=== PATIENT | female | born 1930 | race Caucasian/White ===

== ENCOUNTER 2016-03-31 09:50 | Observation (INO) | payer MEDICARE, OTHER ==
[2016-03-31] MEDS ORDERED: ONDANSETRON HCL 4 MG/2 ML VIAL ONE (10:25)
[2016-03-31 10:58] LABS: BASOPHIL# 0.1 X 10^3uL (0.0-0.1); BASOPHILS 1.5 % (0.0-2.0); EOSINOPHILS# 0.1 X 10^3uL (0.0-0.4); HEMATOCRIT 42.8 % (36.0-48.0); HEMOGLOBIN 14.3 g/dL (12.0-16.0); LYMPHOCYTES 25.3 % (20.0-40.0); LYMPHOCYTES# 2.1 X 10^3uL (0.8-3.8); MEAN CELL VOLUME 83.4 fL (84.0-102.0); MEAN CORPUS. HGB CONCENTRATION 33.4 g/dL (32.0-36.0); MEAN CORPUSCULAR HEMOGLOBIN 27.9 pg (29.0-35.0); MEAN PLATELET VOLUME 8.1 fL (7.4-10.4); MONOCYTES 9.3 % (2.0-10.0); MONOCYTES# 0.8 X 10^3uL (0.2-1.0); NEUTROPHILS 62.9 % (54.0-75.0); NEUTROPHILS# 5.3 X 10^3uL (2.6-6.7); PLATELET COUNT 448 X 10^3uL (130-440); RED BLOOD COUNT 5.13 X 10^6uL (4.20-6.10); RED CELL DISTRIBUTION WIDTH 13.1 % (11.5-14.5); WHITE BLOOD COUNT 8.4 X 10^3uL (3.9-10.7)
[2016-03-31 11:09] LABS: ALBUMIN 4.4 g/dL (3.5-5.0); ALKALINE PHOSPHATASE 149 U/L (38-126); ALT 23 U/L (9-52); AST 25 U/L (14-36); BILIRUBIN, DIRECT 0.4 mg/dL (0.0-0.4); BILIRUBIN, TOTAL 0.9 mg/dL (0.2-1.3); BLOOD UREA NITROGEN 34 mg/dL (7-17); CALCIUM 9.8 mg/dL (8.4-10.2); CHLORIDE 106 mmol/L (98-107); CREATININE 1.4 mg/dL (0.5-1.0); GLUCOSE 100 mg/dL (70-100); POTASSIUM 4.4 mmol/L (3.5-5.1); SODIUM 143 mmol/L (137-145); TOTAL PROTEIN 8.4 g/dL (6.3-8.2)
[2016-03-31 11:20] LABS: TROPONIN I < 0.012 ng/mL (0.00-0.034)
--- NOTE | 2016-03-31 11:40 | CT REPORT ---
HISTORY: Altered mental status COMPARISON: None. TECHNIQUE: Axial non-contrast images obtained from skull vertex through foramen magnum. FINDINGS: Intracranial hemorrhage, parenchymal mass or mass effect There is no evidence of acute ischemia or infarction. The ventricles and sulci are proportionately enlarged consistent with diffuse cerebral volume loss. White matter changes in a pattern consistent with chronic small vessel ischemia are noted. Incidentally noted 12 mm calcified nodule along the anterior falx right of midline consistent with a meningioma. The visualized portions of the orbits and paranasal sinuses are normal in appearance. IMPRESSION: No evidence of acute intracranial pathology. Moderate diffuse cerebral volume loss and white matter changes consistent with chronic small vessel ischemia. Incidentally noted 12 mm meningioma along anterior falx Findings were committed by telephone with Dr. Laurent in the emergency department at 11:00 AM 01/28/2017 Final Electronic Signature: This report was electronically signed by Rich Spencer MD on 03/31/2016 11:03 AM. dwells / MTDD
[2016-03-31] MEDS ORDERED: ACETAMINOPHEN 325 MG TABLET PO PRN ×2 (12:15→19:14)
[2016-03-31] MEDS ORDERED: HOME MEDICATION LIST NEEDED 1 EA EACH MC ONE (12:15)
[2016-03-31] MEDS ORDERED: NORMAL SALINE 1,000 ML IV SCH (13:00)
--- NOTE | 2016-03-31 13:10 | ER PHYSICIAN DOCUMENTATION ---
Physician Documentation [facility] Name:Lorene Ty Age:85 yrs Sex:Female :1930 Arrival Date:03/31/2016 Time:09:50 BedTrauma A Private MD: Murtaza Dee Disposition: 03/31/16 12:15 Admit ordered for Betty Perez. Preliminary diagnosis is Altered Mental Status. - Bed requested for Medical/Surgical. - Condition is Fair. - Problem is new. - Symptoms have improved. 23 HR OBS Yes HPI: 03/31 10:09 This 85 yrs old Female presents to ER with complaints of Altered Mental jm Status. 10:09 The patient presents with decreased mental status, decreased responsiveness. Onset: The jm symptom(s)/episode began/occurred just prior to arrival. Possible causes: unknown. Associated signs and symptoms: Pertinent positives: nausea, Pertinent negatives: abdominal pain, chest pain, lightheadedness. Current symptoms: In the emergency department the patient's symptoms have improved, markedly. Unable to obtain HPI due to AMS. The patient has not experienced similar symptoms in the past. The patient has not recently seen a physician. 10:23 Patient's baseline: The patient has a previous history of dementia. Unable to obtain jm HPI due to altered mental status, baseline dementia. EMS was called 2/2 unresponsiveness this AM. She woke up got out of bed and went back into bed and then couldn't be aroused and wasn't answering questions, so 911 was called. EMS said they agreed she wasn't responsive at first, but started res more as they moved her to the [facility]. By the time she got here, she was answering questions and talking. . Historical: - Allergies: No known drug Allergies; - Home Meds: 1. Lisinopril Oral 2. amlodipine oral 3. Aspirin Oral - PMHx: Hypertension; hyperlipidemia; GOUT; ANXIETY; DEMENTIA; - Immunization history: Pneumococcal vaccine is not up to date, Flu Vaccine < 1 year. - Tetanus: > 10 years. - Ebola Screening: : Patient negative for fever greater than or equal to 101.5 degrees Fahrenheit, and additional compatible Ebola Virus Disease symptoms. Patient denies exposure to infectious person. Patient denies travel to an Ebola-affected area in the 21 days before illness onset. No symptoms or risks identified at this time. . - Social history: Smoking status: Patient states was never smoker of tobacco. Patient/guardian denies using alcohol. ROS: 10:42 Constitutional: Negative for fatigue, fever. jm 10:42 Eyes: Negative for blurry vision, vision loss. 10:42 ENT: Negative for rhinorrhea, sinus congestion, sinus pain, sore throat. 10:42 Cardiovascular: Negative for chest pain. 10:42 Respiratory: Negative for cough, shortness of breath. 10:42 Abdomen/GI: Positive for nausea, Negative for abdominal pain, vomiting, diarrhea. 10:42 Back: Negative for injury or acute deformity. 10:42 MS/extremity: Negative for pain, rash, swelling, tenderness. 10:42 Skin: Negative for rash, swelling. 10:42 Neuro: Positive for altered mental status, Negative for numbness, syncope, near syncope, tingling. 10:42 Psych: Positive for depression, Negative for homicidal ideation. 10:42 All other systems are negative. Exam: 10:44 Constitutional: The patient appears alert, awake, happy and crying at the same time. jm 10:44 Head/face: Exam is negative for obvious evidence of injury or deformity, Sinus tenderness, is not appreciated. 10:44 Eyes: Periorbital structures: appear normal, Pupils: equal, round, and reactive to light and accomodation, Extraocular movements: intact throughout. 10:44 ENT: Mouth: Oral mucosa: dry, Posterior pharynx: is normal, Voice: is normal. 10:44 Neck: C-spine: appears grossly normal, Thyroid: appears normal, Trachea: is midline with no obvious abnormalities. 10:44 Cardiovascular: Rate: normal, Rhythm: regular. 10:44 Respiratory: the patient does not display signs of respiratory distress, Respirations: normal. 10:44 Abdomen/GI: Bowel sounds: normal, Palpation: abdomen is soft and non-tender. 10:44 Back: CVA tenderness, is absent, vertebral tenderness, is not appreciated. 10:44 Musculoskeletal/extremity: Circulation is intact in all extremities. DVT Exam: No signs of deep vein thrombosis. 10:44 Skin: Appearance: Color: pink, no rash present. 10:44 Neuro: Orientation: is normal, Mentation: is normal, Memory: Did not know her year, president, city she lives in, or situation. , Cranial nerves: CN II- XII are normal as tested, Cerebellar function: is grossly normal, normal finger to nose testing, Motor: strength is 5/5 in all extremities, Sensation: is normal. 10:44 Psych: Behavior/mood is pleasant, cooperative, anxious, Affect is calm. Vital Signs: 10:15 BP 137 / 73; Pulse 87; Resp 24; Temp 98.0; Pulse Ox 97% on R/A; Pain 0/10; sj 10:40 BP 149 / 64; Pulse 62; Pulse Ox 98% on R/A; sj 11:09 BP 140 / 66; Pulse 62; Pulse Ox 99% on R/A; sj 11:30 Pulse Ox 74% on R/A; sj 11:36 BP 165 / 63; Pulse 60; Resp 16; Pulse Ox 98% on 2 lpm NC; sj 12:00 BP 148 / 69; Pulse 65; Resp 23; Pulse Ox 98% on 2 lpm NC; sj 12:30 BP 153 / 68; Pulse 67; Resp 13; Pulse Ox 92% on R/A; sj NIH Stroke Scale Scores: 11:11 NIHSS Score: 3 [place] Coma Score: 10:17 Eye Response: spontaneous(4). Verbal Response: confused(4). Motor Response: obeys commands(6). Total: 14. MDM: 09:58 Patient medically screened. 12:02 Differential Diagnosis: electrolyte abnormality, hypoglycemia, intracranial bleed, jm seizure, TIA, volume depletion, hypoxic encephalopathy . Data reviewed: vital signs, nurses notes, EMS record, old medical records, lab test result(s), EKG, radiologic studies, and as a result, I will discharge patient. Test interpretation: by ED physician or midlevel provider: plain radiologic studies, ECG. Counseling: I had a detailed discussion with the patient and/or guardian regarding: the historical points, exam findings, and any diagnostic results supporting the discharge/admit diagnosis, lab results, radiology results, the need for further work-up and treatment in the hospital. ECG:. Physician consultation: Betty Perez DO regarding admission, and will see patient shortly, later today. Admission orders: after a detailed discussion of the patient's condition and case, the admit orders are written by me. ED course: Pt w unresponsive episode. By the time she got here she was baseline according to her daughter. Pt has no complaints. Labs/EKG/CXR/CToH WNL. Pt given 1LNS. Pt did have a desat episode while here into the upper 70's, so anoxic sz on the diff dx. Either way, pt was unresponsive for a while and deserves a observation admission. . 12:41 EKG attached 03/31 10:59 Order name: CBC AUTO DIF, MDIF/RMOR IF IND; Complete Time: 11: [facility] 03/31 11:19 Order name: BASIC METABOLIC PANEL; Complete Time: : [facility] 03/31 11:19 Order name: HEPATIC PANEL; Complete Time: : [facility] 03/31 11:21 Order name: TROPONIN I; Complete Time: : [facility] 03/31 09:59 Order name: 12-lead EKG; Complete Time: : 03/31 09:59 Order name: Continuous Cardiac Monitoring; Complete Time: : 03/31 09:59 Order name: I & O; Complete Time: : 03/31 09:59 Order name: Iv Saline Lock; Complete Time: : 03/31 09:59 Order name: NIH Stroke Scale; Complete Time: : 03/31 09:59 Order name: Pulse Ox Continuous; Complete Time: : EC:02 Rhythm is regular. QRS [place] is Normal. LA interval is normal. QT interval is normal. No jm Q waves. T waves are Normal. No ST changes noted. Dispensed Medications: 10:00 Drug: NS 0.9% 1000 ml; Route: IV; Rate: bolus; Site: left antecubital; 13:09 Follow up: IV Status: Infusion continued upon admission; IV Intake: 600ml NIH Stroke Scale - NIH Stroke Score Date: 03/31/2016 Time: 11:11 Total Score = 3 1a. Level of Consciousness (LOC) - 0(Alert) 1b. Level of Consciousness (LOC) (Year & Age) - 0(Both) 1c. LOC Commands (Open & Closes Eyes/Assistant Principal) - 1(One) 2. Best Gaze (Lateral Gaze Paresis) - 0(Normal) 3. Visual Field Loss - 0(No visual loss) 4. Facial Palsy - 0(Normal) 5a. Left Arm: Motor (10-second hold) - 0(No drift) 5b. Right Arm: Motor (10-second hold) - 0(No drift) 6a. Left Leg: Motor (5-second hold ? always test supine) - 0(No drift) 6b. Right Leg: Motor (5-second hold ? always test supine) - 0(No drift) 7. Limb Ataxia (finger/nose & heel/barnes ? test with eyes open) - 0(Absent) 8. Sensory Loss (pinprick arms/legs/face) - 1(Mild to moderate loss) 9. Best Language: Aphasia (description/naming/reading) - 1(Mild to moderate aphasia) 10. Dysarthria (speech clarity ? read or repeat words) - 0(Normal) 11. Extinction and Inattention (visual/tactile/auditory/spatial/personal) - 0(No abnormality) Initials: sj Signatures: Murtaza Laurent MD MD jm Janzen, Sarah sj
--- NOTE | 2016-03-31 13:10 | ER NURSING DOCUMENTATION ---
Nurse's Notes [facility] Name:Lorene Ty Age:85 yrs Sex:Female :1930 Arrival Date:03/31/2016 Time:09:50 BedTrauma A Private MD: Diagnosis:Altered Mental Status Presentation: 03/31 10:10 Presenting complaint: EMS states: Found unresponsive but breathing by daughter. No sj response to verbal or painful stim. Eventually awoke and complained of nausea. Zofran po given by EMS. Able to speak by the time arrived to [facility]. Fell 2 weeks ago and hit head. Transition of care: Home. Notified ED Physician of patient's arrival and CC Mehran Montaño notified. 10:10 Acuity: JOSE A 2 sj 10:10 Method Of Arrival: EMS: 400 sj Triage Assessment: 10:13 General: Appears in no apparent distress, slender, Behavior is anxious, cooperative, sj teaful, afraid. Pain: Denies pain. EENT: No deficits noted. Neuro: Level of Consciousness is awake, alert, confused, some difficulty obeying commands. Oriented to person. Cardiovascular: Rhythm is sinus rhythm Chest pain is denied. Respiratory: Airway is patent Trachea midline Respiratory effort is even, unlabored, Respiratory pattern is regular. Historical: - Allergies: No known drug Allergies; - Home Meds: 1. Lisinopril Oral 2. amlodipine oral 3. Aspirin Oral - PMHx: Hypertension; hyperlipidemia; GOUT; ANXIETY; DEMENTIA; - Immunization history: Pneumococcal vaccine is not up to date, Flu Vaccine < 1 year. - Tetanus: > 10 years. - Ebola Screening: : Patient negative for fever greater than or equal to 101.5 degrees Fahrenheit, and additional compatible Ebola Virus Disease symptoms. Patient denies exposure to infectious person. Patient denies travel to an Ebola-affected area in the 21 days before illness onset. No symptoms or risks identified at this time. . - Social history: Smoking status: Patient states was never smoker of tobacco. Patient/guardian denies using alcohol. Screenin:23 Infectious Disease Risk None. sj Assessment: 10:17 See Triage Assessment done by same RN. sj 11:36 Reassessment: RA pulse ox dropped into mid-70's while sleeping. Placed on 2L/nc.. sj Vital Signs: 10:15 BP 137 / 73; Pulse 87; Resp 24; Temp 98.0; Pulse Ox 97% on R/A; Pain 0/10; sj 10:40 BP 149 / 64; Pulse 62; Pulse Ox 98% on R/A; sj 11:09 BP 140 / 66; Pulse 62; Pulse Ox 99% on R/A; sj 11:30 Pulse Ox 74% on R/A; sj 11:36 BP 165 / 63; Pulse 60; Resp 16; Pulse Ox 98% on 2 lpm NC; sj 12:00 BP 148 / 69; Pulse 65; Resp 23; Pulse Ox 98% on 2 lpm NC; sj 12:30 BP 153 / 68; Pulse 67; Resp 13; Pulse Ox 92% on R/A; sj [place] Coma Score: 10:17 Eye Response: spontaneous(4). Verbal Response: confused(4). Motor Response: obeys sj commands(6). Total: 14. NIH Stroke Scale Scores: 11:11 NIHSS Score: 3 ED Course: 09:54 Patient arrived in ED. jt 09:58 Murtaza Laurent MD is Attending Physician. melvin 10:00 cardiac monitor technician on. Pulse ox on. NIBP on. sj 10:10 Antonella Panda is Primary Nurse. 10:12 Triage completed. sj 10:[address] pm1 10:18 Valuables shirt, bra, 2 necklaces remain at bedside. Patient has correct armband on for sj positive identification. Placed in gown. Bed in low position. Side rails up X2. Warm blanket given. 10:19 Maintain field IV. Dressing intact. Good blood return noted. Site clean & dry. sj 10:[address] back from [address]. pm1 11:09 EKG done. Reviewed by Murtaza Laurent MD. sj 11:11 CT done EKG done per protocol. sj 12:12 Betty Perez DO is Admitting Physician. melvin 12:41 EKG attached Administered Medications: 10:00 Drug: NS 0.9% 1000 ml; Route: IV; Rate: bolus; Site: left antecubital; sj 13:09 Follow up: IV Status: Infusion continued upon admission; IV Intake: 600ml sj Intake: 13:09 IV: 600ml; Total: 600ml. Outcome: 12:15 Decision to Admit by Provider. melvin 13:03 Admitted to Med/surg accompanied by nurse, with chart. 13:03 Condition: stable 13:03 Report given to Antonella GLOVER 13:03 Discharge Assessment: Patient drowsy Oriented to person. 13:03 Discharge Assessment: Remains pleasantly confused. 13:03 Instructed on need to admit 13:09 Patient left the ED. NIH Stroke Scale - NIH Stroke Score Date: 03/31/2016 Time: 11:11 Total Score = 3 1a. Level of Consciousness (LOC) - 0(Alert) 1b. Level of Consciousness (LOC) (Year & Age) - 0(Both) 1c. LOC Commands (Open & Closes Eyes/Wet Roaster) - 1(One) 2. Best Gaze (Lateral Gaze Paresis) - 0(Normal) 3. Visual Field Loss - 0(No visual loss) 4. Facial Palsy - 0(Normal) 5a. Left Arm: Motor (10-second hold) - 0(No drift) 5b. Right Arm: Motor (10-second hold) - 0(No drift) 6a. Left Leg: Motor (5-second hold ? always test supine) - 0(No drift) 6b. Right Leg: Motor (5-second hold ? always test supine) - 0(No drift) 7. Limb Ataxia (finger/nose & heel/barnes ? test with eyes open) - 0(Absent) 8. Sensory Loss (pinprick arms/legs/face) - 1(Mild to moderate loss) 9. Best Language: Aphasia (description/naming/reading) - 1(Mild to moderate aphasia) 10. Dysarthria (speech clarity ? read or repeat words) - 0(Normal) 11. Extinction and Inattention (visual/tactile/auditory/spatial/personal) - 0(No abnormality) Initials: Signatures: Murtaza Laurent MD MD jm McBride, Philisha pm1 [facility] Sarah sj
--- NOTE | 2016-03-31 15:10 | RADIOLOGY REPORT ---
INDICATION: Altered mental status, shortness of breath COMPARISON: None available FINDINGS: The cardiomediastinal silhouette is mildly enlarged, no comfort edema. The lungs are adequately expanded. There is no discrete lung consolidation or effusion. No pneumothorax. IMPRESSION: no evidence of acute intrathoracic pathology Final Electronic Signature: This report was electronically signed by Rich Spencer MD on 03/31/2016 2:47 PM. dwells / MTDD
--- NOTE | 2016-03-31 21:37 | HISTORY & PHYSICAL ---
DATE OF ADMISSION: 03/31/16 ATTENDING PHYSICIAN: Betty Perez MD PRIMARY CARE PHYSICIAN: Jasmyne Fernandez MD CHIEF COMPLAINT: Unresponsive and altered mental status, now resolved. HISTORY OF PRESENT ILLNESS: The patient is an 85-year-old female with chronic dementia, who lives with her daughter. This morning, her daughter noted that her mom seemed to be less responsive than typical. Most history is obtained through EMS, Emergency Room report and patient's daughters as patient is unable to provide adequate history. The daughter states that she went to awake her mother this morning, and noted that she seemed a little bit still fatigued, so she let her sleep about another hour. She went an hour later, and she still was not getting up and her daughter even tried moving her legs to wake her up and did not seem to arouse her. When she returned to her room an hour later, her legs were still in the same position that her daughter had left them, and she was unable to fully awaken her mother. She discussed with her sister the symptoms and they decided it was best to call 911 for evaluation. When EMS arrived, they did find patient not arousable, but she was breathing and had a pulse. They put her into the gurney, as they were working on transitioning her, she was noted to have stable vital signs, perhaps hyperventilating but nothing of significant difference. Eventually she was able to follow some commands and answer some simple questions, but she is currently not able to answer more than 1 word responses. When I asked the patient about the event today, she had no idea where she was or why she was here at the hospital. She had no concerns or complaints, and she states that she is not in any pain, has no symptoms that she is concerned about. Patient was evaluated in the Emergency Department and had workup with labs and imaging and found nothing specific, and was recommended that she be admitted for further observation due to the acute change in altered mental status. PAST MEDICAL HISTORY 1. Hypertension. 2. Hyperlipidemia. 3. Anxiety. 4. Gout. 5. Senile dementia. PAST SURGICAL HISTORY 1. Appendectomy. SOCIAL HISTORY: She is . She is a nonsmoker. No alcohol. She does live with one of her daughters, and she has another daughter in [place] who is coming up today. FAMILY HISTORY: Nonobtainable. MEDICATIONS Amlodipine 10 mg. Aspirin 81 mg. Lisinopril 10 mg. REVIEW OF SYSTEMS: Patient is unable to fully provide adequate review of symptoms, but she denies any fevers, chills. No abdominal pain. No chest pain. No shortness of breath. No weakness. PHYSICAL EXAMINATION VITAL SIGNS: Upon arrival to the floor, her temperature is 36.8, blood pressure 166/80, pulse 78, respiratory rate 18, she was 95% on room air. GENERAL: Patient is alert and awake, happy. She is not in any distress. Very pleasant when talking with patient, but she is a frail elderly woman. HEENT: No obvious trauma. Oropharynx is dry appearing, but clear. NECK: No jugular venous distention appreciated. CARDIOVASCULAR: Normal rate and rhythm. RESPIRATORY: No increased work of breathing. Clear to auscultation bilaterally. ABDOMEN: Bowel sounds normal, soft and nontender. MUSCULOSKELETAL: Patient is cooperative. She is able to move her arms and legs with no difficulties. SKIN: On her right upper shoulder and clavicle area, it was noted to have some slight erythema. Patient denies any trauma or pain. Otherwise no significant skin abnormalities noted. NEUROLOGICAL: Patient is oriented to person. Unable to give any place or time frame. She is asbel to answer some questions, but difficult to determine if she truly is understanding the question being asked Again, she is motor 5/5 in all extremities. Sensation is normal. Overall cranial nerves 2-12 are grossly intact. LABORATORY: CBC shows a white count of 8.4, hemoglobin 14.3, hematocrit 42.8, platelets of 448. BNP shows a sodium of 143, potassium 4.4, chloride of 106, bicarb of 23, BUN 34, creatinine 1.4. It does appear as if she had labs from October 2015 showing a BUN of 35 and a creatinine 1.57 at that time. Glucose 100, calcium 9.8, alkaline phosphatase elevated at 149, AST 25, ALT 23, troponin less than 0.012. CT head shows no acute intracranial abnormality. She has moderate diffuse cerebral volume loss related to chronic severe ischemic disease and an incidental 12 mm meningoma noted in the anterior falx. ASSESSMENT/PLAN: This is an 85-year-old female with known senile dementia and some anxiety, hypertension, hyperlipidemia who was brought in by ambulance today for altered mental status and unresponsive at home. 1. Altered mental status. Her unresponsiveness resolved spontaneously while EMS was at her home. At this time, it does appear that patient is at her baseline. I am waiting to discuss with her daughter who is coming up from [place] what her true baseline is, but the altered mental status seemed to slowly improve as EMS was evaluating patient. Through this entire time, she was noted to have stable vital signs including pulse and appropriate oxygenation. She did have a brief episode in the Emergency Room where she saturated to the upper 70s and wonder potentially if that could have been a cause of her altered mental status and if this occurs while she is sleeping. At this time, patient has no significant complaints. We will continue to monitor her, repeat her labs and do some periodic neurological testing and as long as she continues to stay at her baseline, she will likely be able to discharge with further evaluation as an outpatient. 2. Dementia. Again patient at baseline does seem to not be able to give full answers describing orientation. She does know who she is and was able to cooperative with evaluation. Will discuss with daughter baseline versus any significant change. 3. Hypoxia. Currently patient is on room air with an 95% saturation, but it was noted that she desaturated to the upper 70s when she was sleeping. Question if maybe potentially this could be a cause of her altered mental status if she does truly have nocturnal hypoxemia. Will continue to monitor her pulse oximetry and check periodic room air saturations while patient is sleeping tonight. 4. Renal insufficiency. This appears to be a chronic issue for patient as her labs from October 2015, had similar appearance. Will hydrate as needed, as she is not taking adequate oral, will give some additional IV fluids, and continue to monitor. 5. Anxiety. Patient is currently not on any medications and does not appear to be anxious or irritated. Will continue to monitor. 6. Meningioma. Incidental finding as it appears on her CT scan. Does not look like she has any other head imaging in her [facility] records. Discussion with daughter states old finding for over 10 years. 7. Hypertension. Patient is on Amlodipine and Lisinopril as an outpatient. Blood pressure is slightly elevated at 166/80. Right now will add in one of these agents and continue to monitor. If ongoing elevations will restart all medications. 8. COR status. It appears that as if family has not fully discussed COR status at this time. Will have the discussion when her daughter arrives from [place]. At this time, she is full COR. 9. DVT prophylaxis. Anticipate short stay. Will encourage patient to ambulate as able. 10. Disposition. Again, will be monitoring for any further episodes of unresponsiveness or altered mental status. If none occur, she will likely be able to be discharged home with follow up with her primary care physician for further evaluation if needed. Copies to: Jasmyne Fernandez MD MTDD
[2016-03-31 23:05] LABS: URINE APPEARANCE CLOUDY; URINE COLOR PALE YELLOW; URINE GLUCOSE NORMAL (NEGATIVE); URINE KETONE NEGATIVE (NEGATIVE); URINE LEUKOCYTE ESTERASE 25 WBC/uL (1+) (NEGATIVE); URINE MUCUS NONE SEEN (Up to 25%); URINE NITRITE NEGATIVE (NEGATIVE); URINE PH 5.5 (5-7); URINE PROTEIN 30mg/dL (1+) (NEG - TRACE); URINE RBC NONE SEEN (0-5/hpf); URINE SPECIFIC GRAVITY 1.015 (0.001-1.035); URINE SQUAMOUS EPITHELIAL CELL NONE SEEN (<= 15/hpf); URINE UROBILINOGEN 0.2mg/dL (Normal) (NEG-1mg/dL)
[2016-03-31 23:06] LABS: URINE BILIRUBIN NEGATIVE (NEGATIVE); URINE BLOOD TRACE (NEGATIVE)
[2016-03-31 23:07] LABS: URINE BACTERIA <10 ORGANISMS/hpf (<10/hpf); URINE TRANSITIONAL EPI CELL 0-5/hpf (<=5/hpf)
[2016-04-01 06:29] VITALS: RESP 16
[2016-04-01 07:01] LABS: BLOOD UREA NITROGEN 29 mg/dL (7-17); CALCIUM 8.9 mg/dL (8.4-10.2); CHLORIDE 110 mmol/L (98-107); CREATININE 1.4 mg/dL (0.5-1.0); GLUCOSE 88 mg/dL (70-100); POTASSIUM 4.6 mmol/L (3.5-5.1); SODIUM 142 mmol/L (137-145)
[2016-04-01] MEDS ORDERED: LISINOPRIL 10 MG TABLET PO SCH (09:00)
[2016-04-01] MEDS ORDERED: amLODIPine BESYLATE 5 MG TABLET PO SCH (09:00)
--- NOTE | 2016-04-01 11:49 | DC SUMMARY: IM Note ---
Discharge Summary: IM/Peds Provider: Date of Admission: 03/31/16 Admitting Provider: TAHIR WONG Attending Provider: KELSEY CORDOBA MD Discharging Provider: TAHIR WONG Primary Care Provider: Discharge Date: 04/01/16 - Diagnosis (1) Altered mental state Status: Resolved (2) Nocturnal hypoxia Status: Acute (3) Dementia Status: Chronic (4) Hypertension Status: Chronic (5) Benign meningioma of brain Status: Chronic (6) Chronic renal insufficiency Status: Acute Hospital Course: Patient was admitted for observation after being found unresponsive in her bed yesterday morning. Initially her daughter felt she was just very tired but then realized this was different than her normal. EMS was called and she was transported to emergency department. By time she arrived at ED however she was alert and answering some commands. She was evaluated in the emergency department and not found to have any acute cause of her symptoms and thus admitted for further observation. Labs overall stable (mild renal insufficiency that is chronic). CT head was normal for her. Cathed UA without infection- await final culture. It was noted that her oxygenation would periodically drop when she was sleeping. Sometimes even as low as upper 70s low 80s- although this is for brief period of time, with her AMS we did decide to start home oxygen and will need further work up as outpatient. At day of discharge patient is at her baseline (more quiet per daughter)- but ambulates without assistance and is back to her baseline mobility. In regards to new nocturnal oxygen- may be worthwhile for formal nocturnal pulse oximetry or sleep study in future to see if ongoing need for oxygen. Pending her symptoms when return home, she may warrant additional evaluation ( carotid US to evaluate for other potential cause of her symptoms) - Time Spent with Patient Total time spent providing and/or coordinating discharge services: Time with patient DS: Greater than 30 minutes Discharge - Patient/Caregiver Discharge Instructions Activity Level: As tolerated Diet: Regular Follow up: KELSEY CORDOBA MD [ACTIVE (Staff Physician)] - 7 Days Overall discharge status: patient is progressing back to baseline, stable Print Language: SPANISH Orders: Home Oxygen Location: Determined By Patient Disposition: HOME, SELF-CARE 1. Medical reason for no anticoagulation order on D/C?: Treatment not indicated 2. Medical reason for no anticoag overlap on D/C?: Treatment not indicated Discharge Summary Data - Medication History Medication History: Home Medications Acetaminophen [Tylenol] 650 mg PO Q6H PRN 03/31/16 Colesevelam HCl [Welchol] 1,250 mg PO BID 03/31/16 Lisinopril [Prinivil*] 10 mg PO DAILY 03/31/16 Quetiapine Fumarate [Seroquel*] 12.5 mg PO HS 03/31/16 amLODIPine BESYLATE [Norvasc*] 10 mg PO DAILY 03/31/16 aspirin EC [Aspirin EC*] 81 mg PO DAILY 03/31/16 traMADol HCL [Ultram*] 50 mg PO TID 03/31/16 Inpatient Medications 03/31/16 19:14 Acetaminophen [Tylenol] 650 mg PO Q6H PRN 04/01/16 09:00 Lisinopril [Prinivil] 10 mg PO DAILY amLODIPine BESYLATE [Norvasc] 10 mg PO DAILY aspirin EC [Ecotrin 81 mg] 81 mg PO DAILY Procedures and tests throughout hospitalization: Completed Lab Orders 03/31/16 21:57 UA w/ M [UA W/ MICRO -CULTURE IF IND] [URINE] Routine Pending Orders 03/31/16 13:14 Miscellaneous Care Order . 03/31/16 19:14 Acetaminophen [Tylenol] 650 mg PO Q6H PRN 03/31/16 20:50 URINE CULTURE [RM] Routine 04/01/16 09:00 Lisinopril [Prinivil] 10 mg PO DAILY amLODIPine BESYLATE [Norvasc] 10 mg PO DAILY aspirin EC [Ecotrin 81 mg] 81 mg PO DAILY Labs on day of discharge: Labs from last 24 hours 04/01/16 03/31/16 03/31/16 05:40 21:57 21:50 Sodium 142 Potassium 4.6 Chloride 110 H Carbon Dioxide 24 BUN 29 H Creatinine 1.4 H GFR Calculation Not Reportable Glucose 88 Calcium 8.9 Urine Color Pale yellow Cancelled Urine Appearance Cloudy A Cancelled Urine pH 5.5 Cancelled Ur Specific [place] 1.015 Cancelled Urine Protein 30mg/dl (1+) A Cancelled Urine Ketones Negative Cancelled Urine Blood Trace A Cancelled Urine Nitrate Negative Cancelled Urine Bilirubin Negative Cancelled Urine Urobilinogen 0.2mg/dl (normal) Cancelled Ur Leukocyte Esterase 25 wbc/ul (1+) A Cancelled Urine RBC None seen Urine WBC 10-25/hpf A Ur Squamous Epith Cells None seen Ur Transition Epith Cell 0-5/hpf Urine Bacteria <10 organisms/hpf Urine Mucus None seen Urine Glucose Normal Cancelled Preliminary micro results at discharge 03/31/16 20:50 Urine Culture - Preliminary Urine,Catheterized NO GROWTH TO DATE IM: Discharge Physical Exam - I&O/Vital Signs I&O: Intake & Output 03/31/16 04/01/16 04/01/16 21:59 05:59 13:59 Intake Total 937 Balance 937 Intake: IV 700 LEFT AC 700 Oral 237 Other: Urine Appearance Cloudy Cloudy Sediment Sediment Urine Color Pale Pale Voiding Method Diaper Diaper # Voids 2 2 Vital Signs: Last Vital Signs Temp 37.2 C 04/01/16 06:28 Pulse 67 04/01/16 06:28 Resp 16 04/01/16 09:00 BP 133/65 04/01/16 06:28 Pulse Ox 91 04/01/16 09:00 Oxygen Flow Rate 1 Oxygen Delivery Method Room Air - Constitutional General appearance: Present: cooperative. Absent: acute distress - Head Head exam: Present: atraumatic, normocephalic - Eye Eye exam: Present: EOMI, PERRL. Absent: conjunctival injection - ENT ENT exam: Present: mucous membranes moist, normal oropharynx - Neck Neck exam: Absent: tenderness - Respiratory Respiratory exam: Present: CTAB. Absent: accessory muscle use - Cardiovascular Cardiovascular exam: Present: RRR - GI/Abdominal GI/Abdominal exam: Present: normal bowel sounds, soft. Absent: tenderness - Extremities Exam Extremities exam: Present: normal inspection. Absent: calf tenderness, edema, tenderness - Back Exam Back exam: Present: normal inspection - Neurological Exam Neurological exam: Present: alert (oriented to person and place, able to name objects around room with no difficulties), CN II-XII intact, normal gait, other (pleasantly demented) - Psychiatric Psychiatric exam: Present: normal mood - Allied Health Notes Allied health notes reviewed: nursing
[2016-04-01 11:53] VITALS: BP 151/65; PULSE 73; TEMP 98.3; O2SAT 93
== END 2016-04-01 11:56 | disposition home or self-care (01) ==
LOC: ER 09:50 → IN 12:52
PROVIDERS: ADMIT Family Medicine; ATTEND Family Medicine
DX: R41.82 Altered mental status, unspecified (principal); F03.90 Unspecified dementia, unspecified severity, without behavioral disturbance, psychotic disturbance, mood disturbance, and anxiety; G47.34 Idiopathic sleep related nonobstructive alveolar hypoventilation; I12.9 Hypertensive chronic kidney disease with stage 1 through stage 4 chronic kidney disease, or unspecified chronic kidney disease; D32.0 Benign neoplasm of cerebral meninges; F41.9 Anxiety disorder, unspecified; M10.9 Gout, unspecified; E78.5 Hyperlipidemia, unspecified; N18.9 Chronic kidney disease, unspecified; Z79.899 Other long term (current) drug therapy; Z74.3 Need for continuous supervision
CPT/HCPCS: 36415; 70450; 71010; 80048; 80076; 81001; 84484; 85025; 87086; 93010; 93041; 96360; 96361; 99217; 99219; 99285; A0425; A0427; G0378; J2405; J7030

== ENCOUNTER 2016-06-17 15:14 | Emergency (ER) | payer MEDICARE ==
[2016-06-17 15:40] LABS: URINE MUCUS NONE SEEN (Up to 25%)
[2016-06-17 15:48] LABS: BASOPHIL# 0.2 X 10^3uL (0.0-0.1); BASOPHILS 1.3 % (0.0-2.0); EOSINOPHILS 0.4 % (0.0-6.0); HEMATOCRIT 43.6 % (36.0-48.0); HEMOGLOBIN 15.1 g/dL (12.0-16.0); LYMPHOCYTES 13.7 % (20.0-40.0); LYMPHOCYTES# 1.6 X 10^3uL (0.8-3.8); MEAN CELL VOLUME 83.2 fL (80.0-100.0); MEAN CORPUS. HGB CONCENTRATION 34.7 g/dL (32.0-36.0); MEAN CORPUSCULAR HEMOGLOBIN 28.9 pg (29.0-35.0); MEAN PLATELET VOLUME 7.7 fL (7.4-10.4); MONOCYTES 9.4 % (2.0-10.0); MONOCYTES# 1.1 X 10^3uL (0.2-1.0); NEUTROPHILS 75.2 % (54.0-75.0); NEUTROPHILS# 8.8 X 10^3uL (2.6-6.7); PLATELET COUNT 417 X 10^3uL (130-440); RED BLOOD COUNT 5.24 X 10^6uL (4.20-6.10); WHITE BLOOD COUNT 11.7 X 10^3uL (3.9-10.7)
[2016-06-17 15:55] LABS: BLOOD UREA NITROGEN 32 mg/dL (7-17); CALCIUM 9.9 mg/dL (8.4-10.2); CHLORIDE 108 mmol/L (98-107); CREATININE 1.7 mg/dL (0.5-1.0); GLUCOSE 164 mg/dL (70-100); SODIUM 144 mmol/L (137-145)
[2016-06-17 16:01] LABS: URINE APPEARANCE CLOUDY; URINE COLOR DARK YELLOW; URINE NITRITE NEGATIVE (NEGATIVE); URINE PROTEIN 100mg/dL (2+) (NEG - TRACE); URINE SPECIFIC GRAVITY 1.025 (0.001-1.035)
[2016-06-17 16:02] LABS: URINE BACTERIA >50 ORGANISMS/hpf (<10/hpf); URINE BILIRUBIN 0.5 mg/100ml (1+) (NEGATIVE); URINE BLOOD NEGATIVE (NEGATIVE); URINE GLUCOSE NORMAL (NEGATIVE); URINE KETONE 10mg/dL (1+) (NEGATIVE); URINE RBC 0-5/hpf (0-5/hpf); URINE UROBILINOGEN NORMAL (NEG-1mg/dL)
[2016-06-17 16:03] LABS: URINE LEUKOCYTE ESTERASE 25 WBC/uL (1+) (NEGATIVE)
[2016-06-17] MEDS ORDERED: LEVOFLOXACIN 250 MG TABLET ONE (16:25)
--- NOTE | 2016-06-17 16:51 | ER PHYSICIAN DOCUMENTATION ---
Physician Documentation [facility] Name:Lorene Ty Age:85 yrs Sex:Female :1930 Arrival Date:06/17/2016 Time:15:14 BedTrauma-A Private MD:Jasmyne Fernandez ED Dennis Nava Disposition: 06/17 16:14 Critical Care: not applicable. nd Disposition: 06/17/16 16:15 Discharged to Home/Self Care. Impression: Bladder Infection (UTI), Dehydration. - Condition is Good. - Discharge Instructions: BLADDER INFECTION, Female (Adult), DEHYDRATION (6y-Adult). - Prescriptions for Levaquin 500 mg Oral Tablet - take 1 tablet by ORAL route once daily for 7 days; 7 tablet. - Medical Reconciliation form form. - Follow up: Jasmyne Fernandez MD; When: 4- 6 days; Reason: Recheck today's complaints, Continuance of care. - Problem is new. - Symptoms have improved. HPI: 16:11 This 85 yrs old Female presents to ER via Private Vehicle with complaints of sc Altered Mental Status. 16:11 The patient presents with confusion. Onset: The symptom(s)/episode began/occurred sc today. Possible causes: a psychiatric problem, the patient has a known psychiatric disorder of dementia, sepsis, unknown. Associated signs and symptoms: Pertinent positives: briefly non-responsive. Current symptoms: In the emergency department the patient's symptoms have resolved. Patient's baseline: Neuro: alert but confused. The patient has experienced a previous episode. Historical: - Allergies: No known drug Allergies; - Home Meds: 1. Lisinopril Oral 2. amlodipine oral 3. Aspirin Oral - PMHx: HYPERTENSION; GOUT; ANXIETY; DEMENTIA; hyperlipidemia; - Tetanus: unable to assess. - Ebola Screening: : Patient denies exposure to infectious person. Patient denies travel to an Ebola-affected area in the 21 days before illness onset. . - Social history: Smoking status: unknown if patient ever smoked tobacco. ROS: 16:12 Constitutional: Negative for fever, chills, and weight loss. sc Eyes: Negative for injury, pain, redness, and discharge. ENT: Negative for injury, pain, and discharge. Neck: Negative for injury, pain, and swelling. Cardiovascular: Negative for chest pain, palpitations, and edema. Respiratory: Negative for shortness of breath, cough, wheezing, and pleuritic chest pain. Abdomen/GI: Negative for abdominal pain, nausea, vomiting, diarrhea, and constipation. Back: Negative for injury and pain. MS/Extremity: Negative for injury and deformity. Skin: Negative for injury, rash, and discoloration. 16:12 Neuro: Negative for headache, weakness, numbness, tingling, and seizure. sc Exam: Constitutional: This is a well developed, well nourished patient who is awake, alert, and in no acute distress. Head/Face: Normocephalic, atraumatic. Eyes: Pupils equal round and reactive to light, extra-ocular motions intact. Lids and lashes normal. Conjunctiva and sclera are non-icteric and not injected. Cornea within normal limits. Periorbital areas with no swelling, redness, or edema. ENT: Nares patent. No nasal discharge, no septal abnormalities noted. Tympanic membranes are normal and external auditory canals are clear. Oropharynx with no redness, swelling, or masses, exudates, or evidence of obstruction, uvula midline. Mucous membranes moist. Neck: Trachea midline, no thyromegaly or masses palpated, and no cervical lymphadenopathy. Supple, full range of motion without nuchal rigidity, or vertebral point tenderness. No meningismus. Chest/axilla: Normal chest wall appearance and motion. Nontender with no deformity. No lesions are appreciated. Cardiovascular: Regular rate and rhythm with a normal S1 and S2. No gallops, murmurs, or rubs. Normal PMI, no JVD. No pulse deficits. Respiratory: Lungs have equal breath sounds bilaterally, clear to auscultation and percussion. No rales, rhonchi or wheezes noted. No increased work of breathing, no retractions or nasal flaring. Abdomen/GI: Soft, non-tender, with normal bowel sounds. No distension or tympany. No guarding or rebound. No evidence of tenderness throughout. Back: No spinal tenderness. No costovertebral tenderness. Full range of motion. 16:13 Skin: Warm, dry with normal turgor. Normal color with no rashes, no lesions, and no sc evidence of cellulitis. 16:13 Constitutional: The patient appears in no acute distress, alert, awake. 16:13 Neuro: Orientation: appropriate for stated age, to person, Mentation: confused. Vital Signs: 15:36 BP 158 / 90; Pulse 80; Temp 98.3; Pulse Ox 91% ; Pain 0/10; st MDM: 15:16 Patient medically screened. nd 16:13 Differential Diagnosis: electrolyte abnormality, sepsis, volume depletion. Data sc reviewed: vital signs, nurses notes, old medical records, lab test result(s), and as a result, I will continue to observe the patient, administer IV fluids. Counseling: I had a detailed discussion with the patient and/or guardian regarding: the historical points, exam findings, and any diagnostic results supporting the discharge/admit diagnosis, lab results, the need for outpatient follow up, to return to the emergency department if symptoms worsen or persist or if there are any questions or concerns that arise at home. Medication response: The patient's symptoms have improved. ED course: patient denies illness or injury, awake and alert during obs here, taking po fluids well, UTI doubt sepsis and mild dehydration with increased Cr compared to records. 06/17 15:52 Order name: CBC AUTO DIF, MDIF/RMOR IF IND; Complete Time: 15:58 EDNJ 06/17 15:58 Interpretation: Normal Except: WHITE BLOOD COUNT 11.7. nd 06/17 15:56 Order name: BASIC METABOLIC PANEL; Complete Time: 15:58 EDMS 06/17 15:58 Interpretation: Abnormal: BLOOD UREA NITROGEN 32; CREATININE 1.7. nd 06/17 16:05 Order name: UA W/ MICRO -CULTURE IF IND; Complete Time: 16:06 EDNJ 06/17 16:06 Interpretation: Abnormal: bacteria, cx ordered. nd 06/17 15:16 Order name: Urine Dip; Complete Time: 15:45 nd 06/17 16:11 Order name: PO Challenge nd Dispensed Medications: 16:16 Drug: Levaquin 750 mg; Route: PO; st 16:50 Follow up: Response: No adverse reaction st Signatures: Iris Stevenson, Dennis Wilson RN, MD MD nd
--- NOTE | 2016-06-17 16:51 | ER NURSING DOCUMENTATION ---
Nurse's Notes [facility] Name:Lorene Ty Age:85 yrs Sex:Female :1930 Arrival Date:06/17/2016 Time:15:14 BedTrauma-A Private MD:Jasmyne Fernandez Diagnosis:Bladder Infection (UTI);Dehydration Presentation: 06/17 15:15 Presenting complaint: EMS states: EMS states that daughter told them that she has been st weaker then normal and that she has had steadily increasing confusion. Transition of care: Home. 15:15 Method Of Arrival: Private Vehicle st 15:31 Acuity: JOSE A 3 st Triage Assessment: 15:15 General: Appears in no apparent distress, Behavior is cooperative. Pain: Denies pain. st EENT: Oral mucosa is dry. Neuro: Level of Consciousness is awake, alert, Oriented to person, Moves all extremities. Cardiovascular: No deficits noted. Respiratory: No deficits noted. GI:. Historical: - Allergies: No known drug Allergies; - Home Meds: 1. Lisinopril Oral 2. amlodipine oral 3. Aspirin Oral - PMHx: HYPERTENSION; GOUT; ANXIETY; DEMENTIA; hyperlipidemia; - Tetanus: unable to assess. - Ebola Screening: : Patient denies exposure to infectious person. Patient denies travel to an Ebola-affected area in the 21 days before illness onset. . - Social history: Smoking status: unknown if patient ever smoked tobacco. Screenin:37 Infectious Disease Risk Unable to Obtain. Abuse screen: no reasons for suspicions st noted. Nutritional screening: Unable to Obtain. Vital Signs: 15:36 BP 158 / 90; Pulse 80; Temp 98.3; Pulse Ox 91% ; Pain 0/10; st ED Course: 15:15 Patient arrived in ED. arc 15:15 Jasmyne Fernandez MD is Private Physician. arc 15:16 Dennis Sanches MD is Attending Physician. sc 15:31 Iris Stevenson, RN is Primary Nurse. st 15:[address] 15:[address] 15:31 Straight cath inserted Specimen obtained. st 15:37 Valuables Remains with patient Call light in reach. Side rails up X2. Pulse Ox - RN st Monitoring Only NIBP On - RN Monitoring Only. 16:15 Jasmyne Fernandez MD is Referral Physician. sc 16:16 Diet: Patient given water. st Administered Medications: 16:16 Drug: Levaquin 750 mg; Route: PO; st 16:50 Follow up: Response: No adverse reaction st Intake: 16:48 PO: 800ml (Water); Total: 800ml. st Outcome: 16:15 Discharge ordered by . ar 16:49 Discharged to home via wheelchair. st 16:49 Condition: stable 16:49 Discharge instructions given to operator helper, Instructed on discharge instructions, follow up and referral plans. medication usage, Prescriptions given X 1. 16:50 Patient [address] the ED. st 04 11:31 Discharge F/U Call: Unable to reach: no answer st Signatures: Iris Stevenson RN RN st Chew, Scott, MD MD sc Chew, Amelia, Reg Reg arc
== END 2016-06-17 16:50 | disposition home or self-care (01) ==
LOC: ER 15:14
DX: N39.0 Urinary tract infection, site not specified (principal); B96.20 Unspecified Escherichia coli [E. coli] as the cause of diseases classified elsewhere; E86.0 Dehydration; R41.0 Disorientation, unspecified; I10 Essential (primary) hypertension; F03.90 Unspecified dementia, unspecified severity, without behavioral disturbance, psychotic disturbance, mood disturbance, and anxiety; Z79.899 Other long term (current) drug therapy; Z79.82 Long term (current) use of aspirin; Z74.3 Need for continuous supervision
CPT/HCPCS: 36415; 51701; 80048; 81001; 85025; 87077; 87086; 87186; 99283; A0425; A0427

== ENCOUNTER 2016-06-24 06:47 | Observation (INO) | payer MEDICARE ==
[2016-06-24 07:46] LABS: BASOPHIL# 0.1 X 10^3uL (0.0-0.1); BASOPHILS 1.1 % (0.0-2.0); EOSINOPHILS 0.8 % (0.0-6.0); EOSINOPHILS# 0.1 X 10^3uL (0.0-0.4); HEMATOCRIT 41.3 % (36.0-48.0); HEMOGLOBIN 14.4 g/dL (12.0-16.0); LYMPHOCYTES 18.2 % (20.0-40.0); LYMPHOCYTES# 1.7 X 10^3uL (0.8-3.8); MEAN CELL VOLUME 83.7 fL (80.0-100.0); MEAN CORPUS. HGB CONCENTRATION 34.9 g/dL (32.0-36.0); MEAN CORPUSCULAR HEMOGLOBIN 29.2 pg (29.0-35.0); MEAN PLATELET VOLUME 8.1 fL (7.4-10.4); MONOCYTES 11.7 % (2.0-10.0); MONOCYTES# 1.1 X 10^3uL (0.2-1.0); NEUTROPHILS 68.2 % (54.0-75.0); NEUTROPHILS# 6.6 X 10^3uL (2.6-6.7); PLATELET COUNT 337 X 10^3uL (130-440); RED BLOOD COUNT 4.94 X 10^6uL (4.20-6.10); RED CELL DISTRIBUTION WIDTH 13.7 % (11.5-14.5); WHITE BLOOD COUNT 9.6 X 10^3uL (3.9-10.7)
[2016-06-24 07:56] LABS: BLOOD UREA NITROGEN 30 mg/dL (7-17); CALCIUM 9.4 mg/dL (8.4-10.2); CHLORIDE 108 mmol/L (98-107); CREATININE 1.6 mg/dL (0.5-1.0); GLUCOSE 95 mg/dL (70-100); SODIUM 143 mmol/L (137-145)
[2016-06-24] MEDS ORDERED: HOME MEDICATION LIST NEEDED 1 EA EACH MC ONE (09:33)
[2016-06-24] MEDS ORDERED: NORMAL SALINE 1,000 ML IV SCH (10:00)
--- NOTE | 2016-06-24 10:32 | ER PHYSICIAN DOCUMENTATION ---
Physician Documentation [facility] Name:Lorene Ty Age:85 yrs Sex:Female :1930 Arrival Date:06/24/2016 Time:06:47 Bed4 Private MD:Jasmyne Fernandez ED PhysicianMurtaza Laurent Disposition: 06/24/16 09:51 Admit ordered for Jasmyne Fernandez. Preliminary diagnosis is Dehydration. - Bed requested for Medical/Surgical. - Condition is Fair. - Problem is new. - Symptoms are unchanged. 23 HR OBS Yes HPI: 06/24 12:44 This 85 yrs old Female presents to ER via EMS with complaints of General jm Weakness. 12:44 period of unresponsiveness that her daughters noted this AM. . Onset: The jm symptom(s)/episode began/occurred just prior to arrival. Severity of symptoms: in the emergency department the symptoms have resolved have improved. Unable to obtain HPI due to baseline dementia. The patient has experienced similar episodes in the past, Dr. Fernandez states that pt has had trouble waking up in the past. This may have been that. . The patient has been recently seen by a physician: Dr. Fernandez. Family feels she needs higher level of care,and when they saw her unresponsive for a minute, they panicked and called 911. Pt has no complaints, but she is "pleasantly demented". . Historical: - Allergies: No known drug Allergies; - Home Meds: 1. Lisinopril Oral 2. amlodipine oral 3. Aspirin Oral - PMHx: HYPERTENSION; GOUT; ANXIETY; DEMENTIA; hyperlipidemia; Bladder Infection (UTI)(June 17, 2016); Dehydration (June 17, 2016); - PSHx: unknown; - Tetanus: < 10 years. - Ebola Screening: : Patient negative for fever greater than or equal to 101.5 degrees Fahrenheit, and additional compatible Ebola Virus Disease symptoms. Patient denies exposure to infectious person. Patient denies travel to an Ebola-affected area in the 21 days before illness onset. No symptoms or risks identified at this time. . - Immunization history: Pneumococcal vaccine is up to date, Flu Vaccine < 1 year. - Social history: Smoking status: Patient states was never smoker of tobacco. Patient/guardian denies using alcohol. - History obtained from: daughter. ROS: 12:44 Constitutional: Negative for fever. jm 12:44 All other systems are negative. Exam: 12:44 Constitutional: The patient appears alert, awake, comfortable. jm 12:44 Eyes: Periorbital structures: appear normal, Pupils: equal, round, and reactive to light and accomodation. 12:44 ENT: Mouth: Oral mucosa: dry, Posterior pharynx: is normal. 12:44 Cardiovascular: Rate: normal, Rhythm: regular. 12:44 Respiratory: the patient does not display signs of respiratory distress, Respirations: normal, Breath sounds: are normal. 12:44 Abdomen/GI: Bowel sounds: normal, Palpation: abdomen is soft and non-tender. 12:44 : CVA tenderness, is absent, Bladder: is normal. 12:44 Skin: Appearance: Color: pink, Turgor: is poor. 12:44 Neuro: Mentation: able to follow commands, Memory: unable to test, the patient has a history of dementia. 12:44 Psych: Behavior/mood is pleasant, cooperative, Affect is calm. Vital Signs: 06:53 BP 194 / 96 (auto/); tg 06:54 Pulse Ox 90% ; tg 06:54 Pulse 70; Resp 18; tg 06:59 Temp 97.8(O); Weight 63.5 kg (R); Height 5 ft. 5 in. (165.10 cm) (R); Pain 0/10; tg 07:30 BP 174 / 83; Pulse 69; Resp 16; Pulse Ox 93% on R/A; Pain 0/10; sj 08:30 BP 191 / 82; Pulse 72; Pulse Ox 93% on R/A; sj 09:25 BP 194 / 86; Pulse 74; Resp 16; Pulse Ox 94% on R/A; Pain 0/10; sj 10:30 BP 186 / 87; Pulse 70; Resp 16; Pulse Ox 94% on R/A; Pain 0/10; sj 06:59 Body Mass Index 23.30 (63.50 kg, 165.10 cm) tg 06:59 Height and weight estimated tg MDM: 07:04 Patient medically screened. 12:54 Differential Diagnosis syncope, arrythmia, dehydration. . Data reviewed: vital signs, nurses notes, lab test result(s), radiologic studies, and as a result, I will discharge patient. Counseling: I had a detailed discussion with the patient and/or guardian regarding: the historical points, exam findings, and any diagnostic results supporting the discharge/admit diagnosis, lab results, the need for further work-up and treatment in the hospital. Physician consultation: Jasmyne Fernandez MD regarding admission, and will see patient shortly, later today. Admission orders: after a detailed discussion of the patient's condition and case, the admit orders are written by me. ED course: Pt w dehydration and renal insufficeny. Pt will be admitted for gentle hydration and possible NH placement. . 06/24 07:49 Order name: CBC AUTO DIF, MDIF/RMOR IF IND; Complete Time: 09:29 EDMS 06/24 07:57 Order name: BASIC METABOLIC PANEL; Complete Time: : EDMS 06/25 06:43 Order name: BASIC METABOLIC PANEL EDMS Dispensed Medications: 08:26 CANCELLED (Other Intervention Used): NS 0.9% (20 ml/kg) 1500 ml IV at bolus bolus; june sj repeat x 1 09:30 Drug: NS 0.9% 1500 ml; Route: IV; Rate: bolus; Site: right forearm; sj 10:32 Follow up: IV Status: Infusion continued; IV Intake: 1500ml Point of Care Testing: Urine Dip: 07:40 pH: 5.0; ; Specific [place]: 1.025; Ketones: Negative; Glucose: Negative; Protein: sj Negative; Leukocytes: Negative; Nitrite: Negative ; Blood: Negative; Bilirubin: Negative ; Urobilinogen: Normal Signatures: Mark Dixon RN RN tg Meyer, John, MD MD jm Janzen, Sarah
--- NOTE | 2016-06-24 10:32 | ER NURSING DOCUMENTATION ---
Nurse's Notes [facility] Name:Lorene Ty Age:85 yrs Sex:Female :1930 Arrival Date:06/24/2016 Time:06:47 Bed4 Private MD:Jasmyne Fernandez Diagnosis:Dehydration Presentation: 06/24 06:53 Presenting complaint: EMS states: Per family, pt was unresponsive at some point this tg AM. For EMS, pt was awake and responsive, baseline mentation and behavior. Pt has no complaints/concerns at thsi time. Transition of care: patient was not received from another setting of care. 06:53 Acuity: JOSE A 2 tg 06:53 Method Of Arrival: EMS: 410 tg 06:53 Care prior to arrival: IV initiated. gauge and site 20G RFA Glucose check. 121 IV tg Fluids given by EMS NS 250 ml. Triage Assessment: 06:57 General: Appears in no apparent distress, Behavior is cooperative, pleasant. Pain: tg Denies pain. Neuro: Level of Consciousness is awake, alert, confused, Oriented to person. Cardiovascular: Capillary refill < 3 seconds. Respiratory: Respiratory effort is even, unlabored. Derm: Bruising that is dark purple, on right hip. Historical: - Allergies: No known drug Allergies; - Home Meds: 1. Lisinopril Oral 2. amlodipine oral 3. Aspirin Oral - PMHx: HYPERTENSION; GOUT; ANXIETY; DEMENTIA; hyperlipidemia; Bladder Infection (UTI)(June 17, 2016); Dehydration (June 17, 2016); - PSHx: unknown; - Tetanus: < 10 years. - Ebola Screening: : Patient negative for fever greater than or equal to 101.5 degrees Fahrenheit, and additional compatible Ebola Virus Disease symptoms. Patient denies exposure to infectious person. Patient denies travel to an Ebola-affected area in the 21 days before illness onset. No symptoms or risks identified at this time. . - Immunization history: Pneumococcal vaccine is up to date, Flu Vaccine < 1 year. - Social history: Smoking status: Patient states was never smoker of tobacco. Patient/guardian denies using alcohol. - History obtained from: daughter. Screenin:39 Nutritional screening: No deficits noted. sj 09:50 Infectious Disease Risk None. Abuse screen: Denies threats or abuse. Denies injuries sj from another. Assessment: 07:39 See Triage Assessment done by same RN. Neuro: Level of Consciousness is awake, alert, sj confused, obeys commands. Vital Signs: 06:53 BP 194 / 96 (auto/); tg 06:54 Pulse Ox 90% ; tg 06:54 Pulse 70; Resp 18; tg 06:59 Temp 97.8(O); Weight 63.5 kg (R); Height 5 ft. 5 in. (165.10 cm) (R); Pain 0/10; tg 07:30 BP 174 / 83; Pulse 69; Resp 16; Pulse Ox 93% on R/A; Pain 0/10; sj 08:30 BP 191 / 82; Pulse 72; Pulse Ox 93% on R/A; sj 09:25 BP 194 / 86; Pulse 74; Resp 16; Pulse Ox 94% on R/A; Pain 0/10; sj 10:30 BP 186 / 87; Pulse 70; Resp 16; Pulse Ox 94% on R/A; Pain 0/10; sj 06:59 Body Mass Index 23.30 (63.50 kg, 165.10 cm) tg 06:59 Height and weight estimated tg ED Course: 06:48 Patient arrived in ED. ma1 06:48 Jasmyne Fernandez MD is Private Physician. ma1 06:52 Mark Dixon, ADALBERTO is Primary Nurse. tg 06:53 Triage completed. tg 07:00 Labs drawn. By EMS. sj 07:02 Notified ED Physician of patient's arrival and chief complaint. Dr. Laurent notified. sj 07:04 Murtaza Laurent MD is Attending Physician. jm 07:11 Jasmyne Fernandez MD is Referral Physician. jm 07:30 Urine collected. straight fem cath UA obtained. sj 07:39 Valuables Remains with patient Patient has correct armband on for positive sj identification. Placed in gown. Bed in low position. Call light in reach. Side rails up X2. Pulse Ox - RN Monitoring Only NIBP On - RN Monitoring Only. Lights dimmed. Warm blanket given. 07:40 Maintain field IV. Dressing intact. Good blood return noted. Site clean & dry. Gauge & sj site: 20gauge, right forearm. 09:51 Jasmyne Fernandez MD is Admitting Physician. 09:51 Jasmyne Fernandez MD is Admitting Physician. sj Administered Medications: 08:26 CANCELLED (Other Intervention Used): NS 0.9% (20 ml/kg) 1500 ml IV at bolus bolus; june repeat x 1 09:30 Drug: NS 0.9% 1500 ml; Route: IV; Rate: bolus; Site: right forearm; sj 10:32 Follow up: IV Status: Infusion continued; IV Intake: 1500ml Point of Care Testing: Urine Dip: 07:40 pH: 5.0; ; Specific [place]: 1.025; Ketones: Negative; Glucose: Negative; Protein: sj Negative; Leukocytes: Negative; Nitrite: Negative ; Blood: Negative; Bilirubin: Negative ; Urobilinogen: Normal Intake: 10:32 IV: 1500ml; Total: 1500ml. Outcome: 07:11 Discharge ordered by . melvin 09:51 Decision to Admit by Provider. melvin 10:31 Admitted to Med/surg accompanied by nurse. 10:31 Condition: stable 10:31 Report given to Jerri GLOVER 10:31 Instructed on need to admit 10:32 Patient left the ED. Signatures: Mark Dixon RN RN tg Meyer, John, MD MD jm Janzen, Sarah sj Addison, Melissa ma1
[2016-06-25 06:00] VITALS: O2SAT 93
[2016-06-25 06:39] LABS: BLOOD UREA NITROGEN 22 mg/dL (7-17); CALCIUM 8.9 mg/dL (8.4-10.2); CHLORIDE 108 mmol/L (98-107); CREATININE 1.2 mg/dL (0.5-1.0); GLUCOSE 94 mg/dL (70-100); POTASSIUM 3.9 mmol/L (3.5-5.1); SODIUM 139 mmol/L (137-145)
--- NOTE | 2016-06-25 08:45 | DC SUMMARY: IM Note ---
Discharge Summary: IM/Peds Provider: Date of Admission: 06/24/16 Admitting Provider: KELSEY CORDOBA MD Attending Provider: KELSEY CORDOBA MD Discharging Provider: KELSEY CORDOBA MD Primary Care Provider: Discharge Date: 06/25/16 - Diagnosis (1) Dehydration Status: Resolved (2) Dementia Status: Chronic (3) Hypertension Status: Chronic Hospital Course: Pt has responded nicely to IVF; VS are nice, she is at baseline, she is weak but ambulatory which is her baseline. Consider outpt PT and close followup through the clinic. Long discussions yesterday and today with family about [facility]PLC (they don't want), home with freq clinic visits to avoid hospital crises (we all prefer this option) or hospice, which they are not capable of embracing it appears. - Time Spent with Patient Total time spent providing and/or coordinating discharge services: Discharge - Patient/Caregiver Discharge Instructions Activity Level: As tolerated; use walker, PT will give tips and maybe recommend ongoing PT Diet: As tolerated; you can't make someone eat, and the tendency is for Lorene to eat and drink very little. I suspect this will continue, it is natural process of aging and preparing to . You can bring Amnamana to the clinic or ER any time if you need help figuring out if she needs something, but it is also OK to accept the natural changes in her aging body. There is no treatment that will reverse her lack of appetite and weight loss. Follow up: KELSEY CORDOBA MD [Primary Care Provider] - 7 Days Overall discharge status: patient is back to baseline Disposition: HOME, SELF-CARE Discharge Summary Data - Medication History Medication History: Home Medications Amlodipine Besylate [Norvasc*] 10 mg PO DAILY 03/31/16 Lisinopril [Prinivil*] 10 mg PO DAILY 03/31/16 aspirin EC [Aspirin EC*] 81 mg PO DAILY 03/31/16 Procedures and tests throughout hospitalization: Completed Lab Orders 06/25/16 05:00 BMP [BASIC METABOLIC PANEL] [CHEM] AMDRAW Pending Orders 06/24/16 09:33 Resuscitation Status Routine 06/25/16 08:27 pt [Physical Therapy Eval and Treatment] [PT] Routine Labs on day of discharge: Labs from last 24 hours 06/25/16 05:00 Sodium 139 Potassium 3.9 Chloride 108 H Carbon Dioxide 22 BUN 22 H Creatinine 1.2 H GFR Calculation Not Reportable Glucose 94 Calcium 8.9 IM: Discharge Physical Exam - I&O/Vital Signs I&O: Intake & Output 06/24/16 06/25/16 06/25/16 21:59 05:59 13:59 Intake Total 460 150 Balance 460 150 Intake: Oral 460 150 Other: Urine Color Yellow Yellow Stool Size Moderate Moderate Stool Characteristics Soft Soft Voiding Method Incontinent Incontinent Incontinent # Bowel Movements 1 Vital Signs: Last Vital Signs Temp 36.8 C 06/25/16 05:59 Pulse 71 06/25/16 05:59 Resp 18 06/25/16 08:15 BP 151/67 06/25/16 05:59 Pulse Ox 93 06/25/16 08:15 Oxygen Delivery Method Room Air - Constitutional General appearance: Present: thin. Absent: acute distress - Head Head exam: Present: atraumatic - Eye Eye exam: Present: EOMI - Neck Neck exam: Absent: lymphadenopathy - Respiratory Respiratory exam: Present: clear - Cardiovascular Cardiovascular exam: Present: RRR - GI/Abdominal GI/Abdominal exam: Present: soft - Extremities Exam Extremities exam: Absent: edema - Neurological Exam Neurological exam: Present: other (not oriented, not sure why she's here, very clear she would like to go home.) - Psychiatric Psychiatric exam: Present: flat affect - Skin Skin exam: Absent: erythema, rash
--- NOTE | 2016-06-25 11:04 | HISTORY & PHYSICAL ---
DATE OF ADMISSION: 06/24/16 ATTENDING PHYSICIAN: Jasmyne Fernandez MD HISTORY OF PRESENT ILLNESS: This 85-year-old lady was seen in the Emergency Room almost exactly 1 week ago with a urinary tract infection, appropriately treated with Levaquin for a mitchell sensitive E. Coli simple urinary tract infection. She had some ups and downs during the week where she was taking p.o. poorly, seemed very weak and unable to get up out of bed. She has been incontinent of stool and urine for many months, and seemed increasingly debilitated as the week went on. Consideration was given to signing up for Hospice, in fact, extensive education was undertaken, and I believe the family actually signed the paperwork for Hospice and DNR. However on the morning of , the patient was hard to awaken (see previous admissions, this has happened before). The family felt that she was uncomfortable and called for an ambulance. The ambulance found her with stable vital signs, started an IV, labs were run in the Emergency Room and found to be fairly unremarkable. Her creatinine was 1.6 (we have seen this before when she was perhaps a little dehydrated) and she was admitted for observation and rehydration. PAST MEDICAL HISTORY 1. Hypertension. 2. Occasional urinary tract infection. 3. Severe dementia. 4. Severe deformity of toenails related to onychomycosis. 5. Recent weight loss and poor p.o. intake. PAST SURGICAL HISTORY 1. Remote appendectomy. SOCIAL HISTORY: She has never been a smoker or drinker. She has been living with her daughter Meg for the last 8 years. MEDICATIONS Norvasc 10 mg p.o. daily. Lisinopril 10 mg p.o. daily. Aspirin 81 mg enteric coated p.o. daily. PHYSICAL EXAMINATION VITAL SIGNS: On admission, patient was afebrile. Had a blood pressure of 186/87 , respiratory rate 16, pulse 74, pulse oximetry excellent on room air 93-94%. GENERAL: She is her pleasant very disoriented self. She has no physical complaints, and she repeatedly states that everything is going okay at home, and that Meg takes good care of her. HEENT: Upper denture in, lower is not. There is no adenopathy in the head and neck region. CARDIAC: Regular rate and rhythm. There is no murmur noted. Normal S1, S2. CHEST: Clear to auscultation throughout. The patient is very cooperative with exam. ABDOMEN: There are normoactive bowel sounds, soft, flat and nontender. EXTREMITIES: Without bruising, injury. There is no edema. Negative Homans sign. ASSESSMENT AND PLAN 1. Extension of previously noted worsening dementia, poor p.o. intake and weakness. The patient has considered Hospice care, but it does not appear for them to be comfortable for them to pursue this at home, so unfortunately those plans will need to be discontinued. They understand that the IV fluids given here in the hospital probably will not reverse very many of the above listed concerns. Her vital signs are stable. Her labs are excellent, she is likely to return to poor p.o. intake and being weak. I encouraged that in future they consider bringing her to the clinic rather than waiting for a crisis and going to the Emergency Room, so that we can follow along and do IV hydration in the clinic if they desire. 2. Recent urinary tract infection. Will assess for recurrence. 3. Hypertension. Well controlled on her routine medications generally. 4. DNR status. Family has signed a DNR order, but they are still vacillating if they are comfortable with this or not. They have requested that I leave the DNR in place at this time, and they will communicate again in the near future. ROBE
[2016-06-25 11:27] VITALS: BP 159/81; PULSE 72; RESP 20
[2016-06-25 11:34] VITALS: TEMP 98.9
== END 2016-06-25 13:06 | disposition home or self-care (01) ==
LOC: ER 06:47 → INTOOBSV 10:53 → IN 10:53 → UNDOADMIN 10:53 → UNDODISIN 06-25 12:00
PROVIDERS: ADMIT Family Medicine; ATTEND Family Medicine
DX: E86.0 Dehydration (principal); R53.1 Weakness; I10 Essential (primary) hypertension; F03.90 Unspecified dementia, unspecified severity, without behavioral disturbance, psychotic disturbance, mood disturbance, and anxiety; R32 Unspecified urinary incontinence; R15.9 Full incontinence of feces; B35.1 Tinea unguium; Z79.899 Other long term (current) drug therapy; Z74.3 Need for continuous supervision
CPT/HCPCS: 36415; 80048; 85025; 96360; 99285; A0425; A0429; G0378; J7030

== ENCOUNTER 2016-08-05 19:11 | Observation (INO) | payer MEDICARE ==
[2016-08-05] MEDS ORDERED: ONDANSETRON ODT 4 MG TAB.RAPDIS ONE (19:35)
[2016-08-05 19:50] LABS: BASOPHIL# 0.1 X 10^3uL (0.0-0.1); BASOPHILS 0.8 % (0.0-2.0); EOSINOPHILS 1.3 % (0.0-6.0); EOSINOPHILS# 0.1 X 10^3uL (0.0-0.4); HEMATOCRIT 46.4 % (36.0-48.0); HEMOGLOBIN 15.7 g/dL (12.0-16.0); LYMPHOCYTES 18.5 % (20.0-40.0); MEAN CELL VOLUME 84.5 fL (80.0-100.0); MEAN CORPUS. HGB CONCENTRATION 33.8 g/dL (32.0-36.0); MEAN CORPUSCULAR HEMOGLOBIN 28.5 pg (29.0-35.0); MONOCYTES# 0.9 X 10^3uL (0.2-1.0); NEUTROPHILS 71.4 % (54.0-75.0); NEUTROPHILS# 7.6 X 10^3uL (2.6-6.7); PLATELET COUNT 447 X 10^3uL (130-440); RED BLOOD COUNT 5.49 X 10^6uL (4.20-6.10); RED CELL DISTRIBUTION WIDTH 14.2 % (11.5-14.5); WHITE BLOOD COUNT 10.7 X 10^3uL (3.9-10.7)
[2016-08-05 20:02] LABS: BLOOD UREA NITROGEN 39 mg/dL (7-17); CHLORIDE 105 mmol/L (98-107); GLUCOSE 103 mg/dL (70-100); POTASSIUM 4.8 mmol/L (3.5-5.1); SODIUM 144 mmol/L (137-145)
[2016-08-05] MEDS ORDERED: HOME MEDICATION LIST NEEDED 1 EA EACH MISC ONE (20:15)
[2016-08-05] MEDS ORDERED: NORMAL SALINE 1,000 ML IV SCH (21:00)
--- NOTE | 2016-08-05 21:34 | ER PHYSICIAN DOCUMENTATION ---
Physician Documentation [facility] Name:Lorene Ty Age:86 yrs Sex:Female :1930 Arrival Date:08/05/2016 Time:19:11 BedTrauma-B Private MD: Dennis Mobley Disposition: 08/05/16 20:14 Admit ordered for aJsmyne Fernandez. Preliminary diagnosis is Dehydration. - Bed requested for Medical/Surgical. - Condition is Fair. - Problem is an acute exacerbation. - Symptoms have improved. 23 HR OBS No HPI: 08/05 19:19 This 86 yrs old Female presents to ER via EMS with complaints of Nausea. sc 19:19 The patient presents to the emergency department with nausea, without any complaints of sc abdominal pain. Onset: The symptom(s)/episode began/occurred at an unknown time. and became worse today. Possible causes: hospice patient with poor po intake today, patient denies any falls or injuries or symptoms except nausea. Associated signs and symptoms: The patient has no apparent associated signs or symptoms, Pertinent positives: nausea, Pertinent negatives: abdominal pain, constipation, diarrhea, dysuria. Unable to obtain HPI due to baseline dementia. Historical: - Allergies: No known drug Allergies; - Home Meds: 1. Lisinopril Oral once daily 2. amlodipine oral 3. Aspirin Oral - PMHx: HYPERTENSION; GOUT; ANXIETY; DEMENTIA; - Tetanus: unable to assess. - Ebola Screening: : No symptoms or risks identified at this time. . - Immunization history: Unable to Obtain. - Social history: Smoking status: Patient states was never smoker of tobacco. ROS: 19:21 Constitutional: Negative for fever, chills, and weight loss. sc Eyes: Negative for injury, pain, redness, and discharge. ENT: Negative for injury, pain, and discharge. Neck: Negative for injury, pain, and swelling. Cardiovascular: Negative for chest pain, palpitations, and edema. Respiratory: Negative for shortness of breath, cough, wheezing, and pleuritic chest pain. Back: Negative for injury and pain. MS/Extremity: Negative for injury and deformity. Skin: Negative for injury, rash, and discoloration. 19:21 Neuro: Negative for headache, weakness, numbness, tingling, and seizure. sc 19:21 Abdomen/GI: Positive for nausea, Negative for abdominal pain, vomiting, diarrhea, constipation. Exam: Head/Face: Normocephalic, atraumatic. Eyes: Pupils equal round and reactive to light, extra-ocular motions intact. Lids and lashes normal. Conjunctiva and sclera are non-icteric and not injected. Cornea within normal limits. Periorbital areas with no swelling, redness, or edema. Neck: Trachea midline, no thyromegaly or masses palpated, and no cervical lymphadenopathy. Supple, full range of motion without nuchal rigidity, or vertebral point tenderness. No meningismus. Chest/axilla: Normal chest wall appearance and motion. Nontender with no deformity. No lesions are appreciated. Cardiovascular: Regular rate and rhythm with a normal S1 and S2. No gallops, murmurs, or rubs. Normal PMI, no JVD. No pulse deficits. Respiratory: Lungs have equal breath sounds bilaterally, clear to auscultation and percussion. No rales, rhonchi or wheezes noted. No increased work of breathing, no retractions or nasal flaring. Abdomen/GI: Soft, non-tender, with normal bowel sounds. No distension or tympany. No guarding or rebound. No evidence of tenderness throughout. 19:21 Back: No spinal tenderness. No costovertebral tenderness. Full range of motion. mn 19:21 Constitutional: The patient appears frail, listless. 19:21 ENT: Mouth: Oral mucosa: dry. 19:21 Cardiovascular: Rate: normal, Rhythm: regular. 19:21 Abdomen/GI: Inspection: abdomen appears normal, Bowel sounds: active, Palpation: abdomen is soft and non-tender. 19:21 Skin: Turgor: tenting is noted. Vital Signs: 19:14 BP 160 / 84 LA Supine (auto/reg); Pulse 95 RA; Resp 20 S; Temp 98.9(O); Pulse Ox 92% on em3 R/A; Pain 0/10; 20:23 BP 162 / 93; Pulse 85; Resp 14; Pulse Ox 95% 2 lpm ; Pain 2/10; mk4 21:31 BP 155 / 67; Pulse 82; Resp 16; Temp 98.4; Pulse Ox 90% on R/A; Pain 0/10; mk4 MDM: 19:19 Patient medically screened. mn 08/05 19:52 Order name: CBC AUTO DIF, MDIF/RMOR IF IND; Complete Time: 20:14 [facility] 08/05 20:02 Interpretation: Normal. mn 08/05 20:04 Order name: BASIC METABOLIC PANEL; Complete Time: 20:14 [facility] 08/06 09:40 Order name: BASIC METABOLIC PANEL [facility] 08/06 13:08 Order name: CAT SCAN; ABD/[place] [id number] [facility] 08/05 19:15 Order name: Urine Dip; Complete Time: 20:04 mn 08/05 19:15 Order name: Iv Saline Lock; Complete Time: 19:38 mn Dispensed Medications: Completed: NS 0.9% 1000 ml IV at bolus once 19:23 Drug: NS 0.9% 1000 ml; Volume: 1000 ml; Route: IV; Rate: bolus; Infused Over: 1 hrs; mk4 Site: left antecubital; Delivery: [place] Tubing; 20:24 Follow up: IV Status: Completed infusion; IV Intake: 1000ml mk4 Point of Care Testing: Urine Dip: 19:12 pH: 5.0; ; Specific [place]: 1.025; Ketones: Negative; Glucose: Negative; Protein: lp Negative; Leukocytes: Negative; Nitrite: Negative ; Blood: Negative; Bilirubin: Negative ; Urobilinogen: Normal Signatures: Dennis Sanches MD MD sc King, Melody 4
--- NOTE | 2016-08-05 21:34 | ER NURSING DOCUMENTATION ---
Nurse's Notes [facility] Name:Lorene Ty Age:86 yrs Sex:Female :1930 Arrival Date:08/05/2016 Time:19:11 BedTrauma-B Private MD: Diagnosis:Dehydration Presentation: 08/05 19:18 Presenting complaint: EMS states: Generalized weakness. Not eating or drinking per mk4 family. Transition of care: Home. 19:18 Method Of Arrival: EMS: 420 mk4 19:18 Acuity: JOSE A 3 mk4 Triage Assessment: 19:21 General: Appears malnourished, unkempt, Behavior is appropriate for age, pleasant. mk4 Pain: Denies pain. EENT: No deficits noted. Neuro: Level of Consciousness is alert, confused, listless, obeys commands, Oriented to person, Lpn Per Diem are weak bilaterally Moves all extremities. Cardiovascular: No deficits noted. Respiratory: Airway is patent Respiratory effort is even, unlabored, Respiratory pattern is. GI: Abdomen is flat, Bowel sounds present X 4 quads. Abd is soft and non tender. : No deficits noted. Derm: No deficits noted. Musculoskeletal: No deficits noted. 21:32 GI: No deficits noted. 4 Historical: - Allergies: No known drug Allergies; - Home Meds: 1. Lisinopril Oral once daily 2. amlodipine oral 3. Aspirin Oral - PMHx: HYPERTENSION; GOUT; ANXIETY; DEMENTIA; - Tetanus: unable to assess. - Ebola Screening: : No symptoms or risks identified at this time. . - Immunization history: Unable to Obtain. - Social history: Smoking status: Patient states was never smoker of tobacco. Screenin:32 Infectious Disease Risk None. Abuse screen: Denies threats or abuse. Nutritional 4 screening: Difficulty chewing/swallowing? Yes. Fall Risk Fall in past 12 months (25 points). Secondary diagnosis (15 points) No IV (0 pts). Ambulatory Aid- None/Bed Rest/Nurse Assist (0 pts). Gait- Weak (10 pts.). Mental Status- Overestimates/Forgets Limitations (15 pts.). Assessment: 19:31 See Triage Assessment done by same RN. 4 Vital Signs: 19:14 BP 160 / 84 LA Supine (auto/reg); Pulse 95 RA; Resp 20 S; Temp 98.9(O); Pulse Ox 92% on em3 R/A; Pain 0/10; 20:23 BP 162 / 93; Pulse 85; Resp 14; Pulse Ox 95% 2 lpm ; Pain 2/10; mk4 21:31 BP 155 / 67; Pulse 82; Resp 16; Temp 98.4; Pulse Ox 90% on R/A; Pain 0/10; mk4 ED Course: 19:12 Patient arrived in ED. jt 19:15 Dennis Sanchse MD is Attending Physician. wi 19:15 Valuables Remains with patient Patient has correct armband on for positive em3 identification. Bed in low position. Call light in reach. Side rails up X2. 19:17 Chantal Mcgrath is Primary Nurse. 4 19:19 Triage completed. mk4 19:32 Cardiac Monitoring On for Nurse Monitoring only. Pulse Ox - RN Monitoring Only NIBP On mk4 - RN Monitoring Only. Door closed. Verbal reassurance given. Warm blanket given. 19:33 Inserted peripheral IV: 20 gauge in right forearm per EMS. mk4 20:13 Jasmyne Fernandez MD is Admitting Physician. sc Administered Medications: Completed: NS 0.9% 1000 ml IV at bolus once 19:23 Drug: NS 0.9% 1000 ml; Volume: 1000 ml; Route: IV; Rate: bolus; Infused Over: 1 hrs; 4 Site: left antecubital; Delivery: [place] Tubing; 20:24 Follow up: IV Status: Completed infusion; IV Intake: 1000ml 4 Point of Care Testing: Urine Dip: 19:12 pH: 5.0; ; Specific [place]: 1.025; Ketones: Negative; Glucose: Negative; Protein: lp Negative; Leukocytes: Negative; Nitrite: Negative ; Blood: Negative; Bilirubin: Negative ; Urobilinogen: Normal Intake: 20:24 IV: 1000ml; Total: 1000ml. 4 Outcome: 20:14 Decision to Admit by Provider. wi 21:31 Admitted to Med/surg accompanied by nurse. mk4 21:31 Condition: good 21:31 Report given to Eneida GLOVER 21:31 Discharge Assessment: Patient awake, alert and oriented x 3. No cognitive and/or functional deficits noted. Patient verbalized understanding of disposition instructions. Oriented to person, Patient 21:34 Patient left the ED. [facility] Signatures: Pavlish, Adeline, Dennis Thompson RN, lp, MD MD sc Meiklejohn, Eric em3 Chantal Mcgrath 4 [facility]
[2016-08-06] MEDS ORDERED: NORMAL SALINE 1,000 ML IV SCH (07:55)
[2016-08-06 09:33] LABS: BLOOD UREA NITROGEN 33 mg/dL (7-17); CALCIUM 8.9 mg/dL (8.4-10.2); CHLORIDE 110 mmol/L (98-107); GLUCOSE 113 mg/dL (70-100); SODIUM 144 mmol/L (137-145)
--- NOTE | 2016-08-06 13:06 | CT REPORT ---
HISTORY: 86-year-old female with abdominal pain. COMPARISON: None. TECHNIQUE: This examination was performed using automated exposure control, adjustment of mA or kV according to patient size, and/or use of iterative reconstruction technique. Axial contiguous images of the abdome n and pelvis were obtained without IV contrast, coronal reformat images also performed. Oral contrast was administered. FINDINGS: Images through the lung bases demonstrate a 8 mm groundglass opacity nodule in the left lower lobe (s eries 2 image 9). No pleural or pericardial effusions. Scattered coronary artery, aortic valvular, an d mitral annular calcifications. Evaluation of the abdomen and pelvis is limited due to lack of intravenous contrast. Within these ann itations, the liver, bilateral adrenal glands, and pancreas are unremarkable. Cholelithiasis is noted within the gallbladder. There are low-attenuation lesions in the bilateral kidneys. The largest lesi on in the inferior pole the left kidney measures up to 5.1 x 4.7 cm in size and contains a thin curvi linear calcified septation consistent with a minimally complex Bosniak 2 cyst. There are small subcen timeter low-attenuation lesions in the right kidney, too small for further characterization but favor ed to represent additional small benign renal cysts. Punctate calcification in the spleen consistent with sequelae of previous granulomatous disease. The abdominal aorta is normal in caliber with genera lized atherosclerosis. The small and large bowel are normal in caliber without obstruction or wall th ickening. There are dystrophic calcifications adjacent to the cecum as well as just medial to the rig ht psoas muscle measuring up to around 1.3 cm in craniocaudal diameter (series 3 image 41) which may represent postsurgical changes from previous appendectomy or sequelae of granulomatous disease, corre lation with surgical history recommended. Multiple small calcified uterine fibroids are noted. The ur inary bladder is normal in appearance. No free fluid is noted in the abdomen or pelvis. No pathologic ally enlarged abdominal, retroperitoneal, or pelvic lymphadenopathy by CT size criteria. Review of bone windows demonstrates no gross lytic or blastic lesions. Multilevel degenerative disc d isease is noted in the thoracic and lumbar spine. Vacuum phenomena/degenerative osteoarthritic change s are noted in the bilateral sacroiliac joints. IMPRESSION: 1. Cholelithiasis. 2. Bilateral renal cysts. The largest cyst is in the inferior pole the left kidney measuring up to 5. 1 x 4.7 cm in size and contains a thin curvilinear calcified septation consistent with a minimally co mplex Bosniak 2 cyst. Additional subcentimeter low-attenuation lesions right kidney, too small for fu rther characterization but also most consistent with small benign renal cysts. 3. 8 mm groundglass opacity nodule in the left lower lobe. A follow-up CT chest in 6-12 months is rec ommended to document stability. 4. Multiple small calcified uterine fibroids. Final Electronic Signature: This report was electronically signed by Lamin Breen MD on 08/06/2016 1: 04 PM. ivett /
--- NOTE | 2016-08-06 16:56 | HISTORY & PHYSICAL ---
DATE OF ADMISSION: 08/05/16 ATTENDING PHYSICIAN: Jasmyne Fernandez MD HISTORY OF PRESENT ILLNESS: This 86-year-old lady was brought into the Emergency Room by ambulance because she was not mobile enough to get to the car. See previous admission. The patient tends to not be interested in eating and drinking, losing weight at home, intermittent problems with weakness and lower abdominal pain of unclear etiology, alternating with being able to come into the clinic and actually looking pretty good. The primary care person at home is the daughter Meg. Meg called me yesterday uncomfortable with her care, wondering if she needed an IV and an admission for rehabilitation. There have been considerations for admitting her to the Hospice program but the family is ultimately not comfortable with the idea of excluding hospital care. However, they have a fairly realistic outlook, understanding that she is declining due to age, and they are comfortable with the DNR status. PAST MEDICAL HISTORY 1. Hypertension. 2. Anxiety. 3. Dementia. MEDICATIONS Lisinopril and Amlodipine recently stopped. She takes a baby aspirin 3 times a week. ALLERGIES: No known drug allergies. SOCIAL HISTORY: Lives at home with her daughter Meg. There is another daughter in [facility] and some other children around the [facility]. I believe there are 4 children all together. She does not smoke and never has, is not a consumer of alcohol. She is a WWII survivor and does have some PTSD related to her experiences. LABORATORY DATA: From the Emergency Room includes a CBC which was unremarkable. Electrolytes remarkable for BUN of 39, a creatinine of 2. Urinalysis with no signs of urinary tract infection this time. PHYSICAL EXAMINATION VITAL SIGNS: Afebrile. Blood pressure 142/69, pulse 69, respiratory rate 20. She is 90% on room air. GENERAL: She is her usual cheerful self, confused and not oriented to the date, knows that she is not at home. She is a frail thin older lady in no acute distress. HEENT: No adenopathy. CARDIAC: Regular rate and rhythm with no murmur. CHEST: Clear to auscultation. ABDOMEN: Normoactive bowel sounds. It is flat, soft and nontender at this time. There are no masses palpable. EXTREMITIES: Thin and not edematous. ASSESSMENT AND PLAN 1. Dehydration. This is a recurring issue for this elderly lady who just has no appetite. Her labs were consistent with dehydration. Her vital signs have remained stable. This will continue to be a recurring issue and the daughters understand this. For long stretches of time they are accepting of her condition , and then episodically, I think they have difficulty watching it and call for hospitalization. We will continue to discuss her care plan while she is in house. 2. Intermittent abdominal pain. She does not have a urinary tract infection this time. I will speak with the daughter about some imaging to see if there is some other diagnosis for her intermittent severe abdominal pain which apparently radiates down the legs. 3. Weakness. Physical Therapy can assess if she is safe ambulating once she is rehydrated. The family is interested in a rehab/swing bed stay, but I am not certain she will qualify for this. Probably she will go home and they will do the best they can. Home Health may have a role, but not hospice. 4. DNR. The family is comfortable with this decision. 5. Hypertension. She is off medication and I am inclined to not restart it, even if she is mildly hypertensive here in the hospital, as she tends to get dehydrated and a fall and a broken bone would not serve her cause well at all. ROBE
[2016-08-06 23:51] VITALS: O2SAT 94
[2016-08-07] MEDS ORDERED: ACETAMINOPHEN 325 MG TABLET PO PRN (02:50)
[2016-08-07 11:33] VITALS: BP 169/98; PULSE 69; RESP 18; TEMP 97.2
--- NOTE | 2016-08-07 13:44 | DC SUMMARY: IM Note ---
Discharge Summary: IM/Peds Provider: Date of Admission: 08/05/16 Admitting Provider: KELSEY CORDOBA MD Attending Provider: KELSEY CORDOBA MD Discharging Provider: KELSEY CORDOBA MD Primary Care Provider: Discharge Date: 08/07/16 Consults: 08/06/16 06:30 Nutrition/Dietary Consult [CONS] SANTANA Reason: LOW SANTANA - Diagnosis (1) Dehydration Status: Acute (2) Chronic renal insufficiency Status: Chronic (3) Dementia Status: Chronic Qualifiers: Dementia type: Alzheimer's disease Alzheimer's disease onset: late-onset Dementia behavioral disturbance: without behavioral disturbance Qualified Code (s): G30.1 - Alzheimer's disease with late onset; F02.80 - Dementia in other diseases classified elsewhere without behavioral disturbance (4) Hypertension Status: Chronic Qualifiers: Hypertension type: essential hypertension Qualified Code(s): I10 - Essential (primary) hypertension (5) Abdominal pain Status: Resolved - Time Spent with Patient Total time spent providing and/or coordinating discharge services: Discharge - Patient/Caregiver Discharge Instructions Activity Level: As tolerated, use walker Diet: regular, whatever you want! Follow up: KELSEY CORDOBA MD [Primary Care Provider] - 08/14/16 11:20 am Overall discharge status: patient is progressing back to baseline Disposition: HOME, SELF-CARE Discharge Summary Data - Medication History Medication History: Home Medications Other [No Known Home Medications] 08/07/16 Inpatient Medications 08/06/16 07:55 Normal Saline [Sodium Chloride 0.9% 1000 ml] 1,000 ml IV CONT 08/07/16 02:50 Acetaminophen [Tylenol] 325 - 650 mg PO Q4H PRN Procedures and tests throughout hospitalization: Completed Lab Orders 08/06/16 09:00 BMP [BASIC METABOLIC PANEL] [CHEM] Stat Completed Imaging Orders 08/06/16 09:15 [place] SCAN; [place] [id number] [CT] Routine Pending Orders 08/06/16 07:55 Normal Saline [Sodium Chloride 0.9% 1000 ml] 1,000 ml IV CONT 08/06/16 08:00 pt [Physical Therapy Eval and Treatment] [PT] Routine 08/06/16 09:22 NPO for test .4HOURS BEFORE TEST 08/06/16 18:01 Activity: Ambulate with Assist TID 08/07/16 02:50 Acetaminophen [Tylenol] 325 - 650 mg PO Q4H PRN IM: Discharge Physical Exam - I&O/Vital Signs I&O: Intake & Output 08/06/16 08/07/16 08/07/16 21:59 05:59 13:59 Intake Total 1290 240 Output Total 400 Balance 1290 -160 Intake: IV 810 Right Forearm 810 Oral 480 240 Output: Urine 400 Other: Urine Appearance Clear Clear Urine Color Yellow Yellow Yellow Voiding Method Incontinent Incontinent # Voids 2 2 Vital Signs: Last Vital Signs Temp 36.2 C L 08/07/16 11:00 Pulse 69 08/07/16 11:00 Resp 18 08/07/16 11:00 BP 169/98 08/07/16 11:00 Pulse Ox 94 08/07/16 11:00 Oxygen Flow Rate 1 Oxygen Delivery Method Room Air - Constitutional General appearance: Present: disheveled, thin. Absent: acute distress - Respiratory Respiratory exam: Present: clear - Cardiovascular Cardiovascular exam: Present: RRR - GI/Abdominal GI/Abdominal exam: Present: normal bowel sounds, soft - Extremities Exam Extremities exam: Absent: edema - Psychiatric Psychiatric exam: Present: normal affect. Absent: anxious - Skin Skin exam: Absent: abrasion, rash
== END 2016-08-07 13:52 | disposition home or self-care (01) ==
LOC: ER 19:11 → IN 20:55 → EEVIPCON 20:55
PROVIDERS: ADMIT Family Medicine; ATTEND Family Medicine
DX: E86.0 Dehydration (principal); R53.1 Weakness; I12.9 Hypertensive chronic kidney disease with stage 1 through stage 4 chronic kidney disease, or unspecified chronic kidney disease; N18.9 Chronic kidney disease, unspecified; G30.1 Alzheimer's disease with late onset; F02.80 Dementia in other diseases classified elsewhere, unspecified severity, without behavioral disturbance, psychotic disturbance, mood disturbance, and anxiety
CPT/HCPCS: 36415; 74176; 80048; 85025; 96360; 99285; A0425; A0429; G0378; G8978; G8979; J7030